=== PATIENT | male | born 1980 | race Two or more races ===

== ENCOUNTER 2020-04-10 09:55 | Outpatient (REF) | payer OTHER, SELFPAY | END 2020-04-10 09:56 | disposition home or self-care (01) | LOC: HO.LAB 09:55 | PROVIDERS: Visit Provider Internal Medicine | DX: Z20.822 Contact with and (suspected) exposure to COVID-19 (principal) | CPT/HCPCS: 36415; C9803; U0003 ==

== ENCOUNTER 2021-07-05 13:38 | Outpatient (REF) | payer OTHER, SELFPAY ==
--- NOTE | ~2021-07-05 | MR_ITS ---
EXAMINATION: MR LUMBAR SPINE WITHOUT CONTRAST CLINICAL INFORMATION: Low back pain. COMPARISON: CT abdomen 12/29/2018. TECHNIQUE: MRI of the lumbar spine was obtained using routine sequences without contrast. 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 Alignment is normal. Vertebral heights are preserved. No acute bone marrow signal changes. There is loss of intervertebral disc height and T2 signal intensity at L2-L3 related to disc degeneration. The tip of the conus and layers is located at L1-L2. No mass effect on the conus. Visualized distal cord signal intensity is normal. At L1-L2 the annular contour is normal. No canal or neuroforaminal compromise. At L2-L3 there is a bulging disc. Bilateral facet degenerative change. Moderate canal stenosis. No mass effect on the traversing or foraminal nerve roots. At L3-L4 the annular contour is normal. No canal or neuroforaminal compromise. At L4-L5 the annular contour is normal. Bilateral facet degenerative change. No canal or neuroforaminal compromise. At L5-S1 the annular contour is normal. Bilateral facet degenerative change. No canal or neuroforaminal compromise. Limited visualization of the retroperitoneal anatomy reveals no abnormal finding. Psoas and paraspinal muscle groups are symmetric. MR/MR lumbar spine wo con IMPRESSION: There is a bulging disc at L2-L3 which is superimposed upon overall congenital canal narrowing resulting in moderate canal stenosis. Otherwise no canal compromise within the lumbar spine. No mass effect on the traversing or foraminal nerve roots.
== END 2021-07-05 13:39 | disposition home or self-care (01) ==
LOC: HO.MRI 13:38
PROVIDERS: Visit Provider Nurse Practitioner Family
DX: M54.50 Low back pain, unspecified (principal)
CPT/HCPCS: 72148

== ENCOUNTER 2021-10-03 01:35 | Emergency (ER) | payer OTHER, SELFPAY | END 2021-10-03 02:47 | disposition left against medical advice (07) | PROVIDERS: Emergency Provider Emergency Medicine | DX: M54.9 Dorsalgia, unspecified (principal) ==

== ENCOUNTER 2022-01-19 15:01 | Emergency (ER) | payer OTHER, SELFPAY ==
--- NOTE | ~2022-01-19 | US_ITS ---
EXAMINATION: US ABDOMEN LIMITED CLINICAL INFORMATION: Right upper quadrant, epigastric pain. COMPARISON: None TECHNIQUE: Real-time imaging of the right upper quadrant abdominal viscera. FINDINGS: PANCREAS: Visualized portions of the pancreas are unremarkable. The pancreatic tail is obscured by bowel gas. LIVER: The liver is normal in size. The liver contour is normal. There is diffuse increased liver parenchymal echogenicity, consistent with hepatic steatosis. No focal hepatic lesion. There is no intrahepatic biliary duct dilatation seen. GALLBLADDER: Normal. The gallbladder is physiologically distended without evidence of stones, sludge, polyps, wall thickening or pericholecystic fluid. COMMON BILE DUCT: Normal in caliber measuring 0.4 cm in diameter. RIGHT KIDNEY: Normal. No hydronephrosis. No renal calculi or focal parenchymal lesions. The kidney measures 10.6 cm in maximum dimension. FREE FLUID: None. US/US abdomen limited IMPRESSION: Hepatic steatosis.
--- NOTE | ~2022-01-19 | XR_ITS ---
EXAMINATION: CHEST AND RIGHT SHOULDER. CLINICAL INFORMATION: Chest pain with limited range of motion for about 4 days. COMPARISON: None TECHNIQUE: Chest 2 views. Right shoulder 4 views. FINDINGS: CHEST: Both lungs are fairly well-expanded and clear acute process. The heart size and pulmonary vascularity is normal. No gross bony abnormality seen. RIGHT SHOULDER: The glenohumeral and AC joint space is maintained normal. No visible acute fracture, dislocation or subluxation seen. No soft tissue calcification seen. XR/XR chest 2V IMPRESSION: Unremarkable chest exam. Unremarkable right shoulder exam.
--- NOTE | ~2022-01-19 | XR_ITS ---
EXAMINATION: CHEST AND RIGHT SHOULDER. CLINICAL INFORMATION: Chest pain with limited range of motion for about 4 days. COMPARISON: None TECHNIQUE: Chest 2 views. Right shoulder 4 views. FINDINGS: CHEST: Both lungs are fairly well-expanded and clear acute process. The heart size and pulmonary vascularity is normal. No gross bony abnormality seen. RIGHT SHOULDER: The glenohumeral and AC joint space is maintained normal. No visible acute fracture, dislocation or subluxation seen. No soft tissue calcification seen. XR/XR shoulder RT min 2V IMPRESSION: Unremarkable chest exam. Unremarkable right shoulder exam.
[2022-01-19 15:14] VITALS: BP 143/84; PULSE 84; RESP 18; TEMP 37; O2SAT 97; BMI 29.5
--- NOTE | 2022-01-19 15:17 | ECG_ITS ---
Test Reason : R SHOULDER PX W/ RADIATION Blood Pressure : / mmHG Vent. Rate : 076 BPM Atrial Rate : 076 BPM P-R Int : 162 ms QRS Dur : 082 ms QT Int : 364 ms P-R-T Axes : 040 012 011 degrees QTc Int : 409 ms Normal sinus rhythm Normal ECG When compared with ECG of 05-MAY-2019 21:03, No significant change was found Referred By: Generic ED Physician Electronically Signed By:ALYSON TELLEZ MD
[2022-01-19 15:34] LABS: MANUAL DIFF FLAG NO
[2022-01-19 15:35] LABS: Basophils Percent Auto 0.5 % (0-2); Eosinophils Absolute Auto 0.1 X10*3/uL (0.0-0.4); Eosinophils Percent Auto 1.7 % (0-4); Hemoglobin 14.3 g/dl (14.0-18.0); Imm Gran Abs Auto 0.01 X10*3/uL (0.00-0.03); Imm Gran Pct Auto 0.2 % (0.0-0.4); Lymphocytes Absolute Auto 1.6 X10*3/uL (1.2-4.9); Lymphocytes Percent Auto 24.1 % (20-40); Mean Corpuscular Hemoglobin 29.2 pg (27.0-33.0); Mean Corpuscular Volume 85.9 fL (80.0-98.0); Mean Platelet Volume 9.6 fL (9.4-12.4); Monocytes Absolute Auto 0.5 X10*3/uL (0.1-1.2); Monocytes Percent Auto 7.6 % (2-11); Neutrophils Absolute Auto 4.3 x10*3/uL (2.0-8.3); Neutrophils Percent Auto 65.9 % (45-73); Platelet Count 201 X10*3/uL (160-400); Red Blood Count 4.89 X10*6/uL (4.60-5.80); Red Cell Distribution Width 13.3 % (11.0-16.0); White Blood Count 6.5 X10*3/uL (4.8-10.8)
[2022-01-19 15:53] LABS: Alanine Aminotransferase 41 U/L (0-40); Albumin Level 4.8 g/dL (3.5-5.0); Alkaline Phosphatase 78 U/L (39-117); Anion Gap 15 (12-20); Aspartate Amino Transferase 27 U/L (5-37); Bilirubin Total 0.6 mg/dL (0.0-1.0); Blood Urea Nitrogen 11 mg/dL (9-16); Calcium 9.6 mg/dL (8.4-10.2); Carbon Dioxide 26 mmol/L (22-29); Chloride 103 mmol/L (96-108); Creatinine Clr Calc Pharmacy 125.5; Estimated Glomerular Filt Rate > 60; Glucose Random 115 mg/dL (60-115); Potassium 4.1 mmol/L (3.3-5.1); Sodium 140 mmol/L (135-145); Total Protein 7.3 g/dL (6.5-8.0)
[2022-01-19 15:59] LABS: Troponin-I High Sensitivity < 3.5 ng/L (<3.5-35.0)
--- NOTE | 2022-01-19 16:05 | ED_ITS ---
HPI - Extremity Problem General Chief complaint: Extremity Problem Stated complaint: r side pain under shoulder blade Time Seen by Provider: 01/19/22 15:34 Source: patient Mode of arrival: ambulatory History of Present Illness HPI Narrative: 41-year-old male with no significant past medical history presenting to ED complaining of right-sided scapular pain radiating around abdomen to epigastrium x4 days worsening over the past 2 days. States pain is constant, fluctuates in intensity, worse with movement. Denies nausea, vomiting, diarrhea, dysuria/hematuria, flank pain, recent travel, history of clots, pedal edema Onset (ago): day(s) Related Data Previous Rx's Medication Instructions Recorded ketorolac 10 mg tablet 10 mg PO TID PRN pain 5 days #15 01/19/22 tabs lidocaine 5 % topical patch 1 patch topical DAILY PRN pain #30 01/19/22 (Lidoderm) ea Allergies Allergy/AdvReac Type Severity Reaction Status Date / Time cefazolin [CEFAZOLIN] Allergy Unknown ANAPHYLAXIS Unverified 12/23/19 18:52 Review of Systems Review of Systems: Constitutional: No Fever, No Chills, No Fatigue, No Malaise ENT/Mouth: No Ear Pain, No Nasal Congestion, No Sinus Pain, No sore throat, No Rhinorrhea, No Swallowing Difficulty Eyes: No Eye Pain, No Swelling, No Redness, No Discharge, No Vision Changes Cardiovascular: + Chest Pain, No SOB, No Dyspnea on Exertion, No Orthopnea, No Edema, No Palpitations Respiratory: No Cough, No Sputum, No Dyspnea Gastrointestinal: No Nausea, No Vomiting, No Diarrhea, No Constipation, No Abdominal pain Genitourinary: No Dysuria, No Urinary Frequency, No Hematuria, No Urinary Incontinence/retention, No Flank Pain, No Urinary Flow Changes Musculoskeletal: No joint pain, No Myalgias, No Joint Swelling Skin: No Skin Lesions, No rash Neuro: No Weakness, No Numbness, No Paresthesias, No Dizziness, No Headache Yes all other systems are reviewed and are negative Constitutional: Constitutional: Reports as per [facility] Past Medical History Attestation statement: The following information was validated with the patient. Social History Social History Advance Directives: No Advance Directives Information Provided: No Physical Exam Vital Signs: Vital Signs: Last Vital Signs Temp 98.0 F 01/19/22 16:58 Pulse 70 01/19/22 16:58 Resp 18 01/19/22 16:58 BP 115/82 01/19/22 16:58 Pulse Ox 5 L 01/19/22 16:58 O2 Del Method 01/19/22 16:58 BMI result Body Mass Index 29.5 Const: General: cooperative, healthy appearing and no acute distress Orientation/consciousness: patient oriented x3 Limitations: no limitations HEENT: Head: Yes normal to inspection and Yes atraumatic Ears: hearing feli sly normal bilaterally General nose exam: Normal external nose present Face and sinus: Yes normal facial exam Eyes: General: appearance normal, both eyes and all related structures EOM: EOMs intact bilaterally Neck: Neck: Yes normal visual inspection and Yes no meningeal signs Chest: Chest palpation & inspection: normal inspection of the chest, no crepitus and no tenderness Resp: Effort & Inspection: normal respiratory effort and no respiratory distress Auscultation: clear to auscultation bilaterally, no crackles, no rales, no rhonchi and no wheezes Cardio: Rate: regular rate Heart sounds: S1 normal heart sound present and S2 normal heart sound present GI: Inspection: Yes normal to inspection Palpation (GI): Soft to palpation, Tenderness to palpation present (GI) in the epigastrum and in the RUQ; with no rebound tenderness, no guarding and not rigid : General: Yes no CVA tenderness Back/Spine/Pelvis: Other: No midline thoracic/lumbar spinous tenderness/step-off or deformity Back: no CVA tenderness Skin: Rashes: no rashes Wounds: no wounds Neuro: General: patient oriented x3, tone normal and no meningeal signs Gait exam (Neuro): Normal gait present Extrem: General: Yes normal to inspection, Yes no pedal edema and Yes no calf tenderness Course Course Course Narrative: -161--labs unremarkable. Troponin negative. -1699--D-dimer negative XR chest 2V/XR shoulder RT min 2V IMPRESSION: Unremarkable chest exam. ? Unremarkable right shoulder exam.? 1714-- US abdomen limited IMPRESSION: ? Hepatic steatosis. -1717--on re-evaluation patient reports symptomatic improvement after IV Toradol given in the ED. Results discussed with patient including worrisome signs and symptoms and strict return precautions, and when to return to the emergency department. They verbalized understanding and feel safe for discharge at this time. MDM - Extremity (Nontraumatic) MDM Narrative Medical decision making narrative: 41-year-old male with no significant past medical history presenting to ED complaining of right-sided scapular pain radiating around abdomen to epigastrium x4 days worsening over the past 2 days. On exam vital signs stable, NAD, nontoxic appearing, abdomen soft with RUQ/epigastric pain, no rebound or guarding, no CVA tenderness. No pedal edema. Concern for cholecystitis/cholelithiasis vs pancreatitis vs pyelo or renal stone vs atypical ACS vs ?PE vs PNA vs MSK pain. Lower suspicion for dissection or UTI Plan: EKG, labs, CXR, abdomen ultrasound, IVF, pain management Differential Diagnosis Differential diagnosis: Likely lower extremity edema Medical Records Attestation: I reviewed the patient's medical records. Lab Data Attestation: I reviewed the patient's lab results. Result diagrams: 01/19/22 15:27 01/19/22 15:27 Labs: Lab Results 01/19/22 01/19/22 01/19/22 Range/Units 15:27 15:27 15:27 WBC 6.5 (4.8-10.8) X10*3/uL RBC 4.89 (4.60-5.80) X10*6/uL Hgb 14.3 (14.0-18.0) g/dl Hct 42.0 (42.0-52.0) % MCV 85.9 (80.0-98.0) fL MCH 29.2 (27.0-33.0) pg MCHC 34.0 (31.0-36.0) g/dl RDW 13.3 (11.0-16.0) % Plt Count 201 (160-400) X10*3/uL MPV 9.6 (9.4-12.4) fL Immature Gran % (Auto) 0.2 (0.0-0.4) % Neut % (Auto) 65.9 (45-73) % Lymph % (Auto) 24.1 (20-40) % Stearns % (Auto) 7.6 (2-11) % Eos % (Auto) 1.7 (0-4) % Baso % (Auto) 0.5 (0-2) % Lymph # (Auto) 1.6 (1.2-4.9) X10*3/uL Stearns # (Auto) 0.5 (0.1-1.2) X10*3/uL Eos # (Auto) 0.1 (0.0-0.4) X10*3/uL Baso # (Auto) 0.0 (0.0-0.2) X10*3/uL Abs Immat Gran (auto) 0.01 (0.00-0.03) X10*3/uL Absolute Neuts (auto) 4.3 (2.0-8.3) x10*3/uL Absolute Nucleated RBC 0.000 (0.0-0.012) X10*3/uL Nucleated RBC % (auto) 0.0 (0.0-0.2) /100WBC D-Dimer High Sensitivty NG/ML Sodium 140 (135-145) mmol/L Potassium 4.1 (3.3-5.1) mmol/L Chloride 103 (96-108) mmol/L Carbon Dioxide 26 (22-29) mmol/L Anion Gap 15 (12-20) BUN 11 (9-16) mg/dL Creatinine 0.96 (0.5-1.4) mg/dL Estim Creat Clear Calc 125.5 Estimated GFR > 60 Random Glucose 115 (60-115) mg/dL Calcium 9.6 (8.4-10.2) mg/dL Magnesium 2.0 (1.6-2.6) mg/dL Total Bilirubin 0.6 (0.0-1.0) mg/dL AST 27 (5-37) U/L ALT 41 H (0-40) U/L Alkaline Phosphatase 78 (39-117) U/L Troponin I High Sens < 3.5 (<3.5-35.0) ng/L Total Protein 7.3 (6.5-8.0) g/dL Albumin 4.8 (3.5-5.0) g/dL Lipase 10 (8-78) U/L 01/19/22 Range/Units 16:29 WBC (4.8-10.8) X10*3/uL RBC (4.60-5.80) X10*6/uL Hgb (14.0-18.0) g/dl Hct (42.0-52.0) % MCV (80.0-98.0) fL MCH (27.0-33.0) pg MCHC (31.0-36.0) g/dl RDW (11.0-16.0) % Plt Count (160-400) X10*3/uL MPV (9.4-12.4) fL Immature Gran % (Auto) (0.0-0.4) % Neut % (Auto) (45-73) % Lymph % (Auto) (20-40) % Stearns % (Auto) (2-11) % Eos % (Auto) (0-4) % Baso % (Auto) (0-2) % Lymph # (Auto) (1.2-4.9) X10*3/uL Stearns # (Auto) (0.1-1.2) X10*3/uL Eos # (Auto) (0.0-0.4) X10*3/uL Baso # (Auto) (0.0-0.2) X10*3/uL Abs Immat Gran (auto) (0.00-0.03) X10*3/uL Absolute Neuts (auto) (2.0-8.3) x10*3/uL Absolute Nucleated RBC (0.0-0.012) X10*3/uL Nucleated RBC % (auto) (0.0-0.2) /100WBC D-Dimer High Sensitivty < 150 NG/ML Sodium (135-145) mmol/L Potassium (3.3-5.1) mmol/L Chloride (96-108) mmol/L Carbon Dioxide (22-29) mmol/L Anion Gap (12-20) BUN (9-16) mg/dL Creatinine (0.5-1.4) mg/dL Estim Creat Clear Calc Estimated GFR Random Glucose (60-115) mg/dL Calcium (8.4-10.2) mg/dL Magnesium (1.6-2.6) mg/dL Total Bilirubin (0.0-1.0) mg/dL AST (5-37) U/L ALT (0-40) U/L Alkaline Phosphatase (39-117) U/L Troponin I High Sens (<3.5-35.0) ng/L Total Protein (6.5-8.0) g/dL Albumin (3.5-5.0) g/dL Lipase (8-78) U/L Discharge Plan Discharge Clinical Impression: Abdominal pain Patient Disposition: Home, Self-Care Instructions: Abdominal Pain (ED) Additional Instructions: Your blood work was reassuring. Your chest x-ray and shoulder x-ray were unremarkable. Your ultrasound shows fatty liver, avoid fatty/greasy foods, salts, alcohol. Toradol as an anti-inflammatory/pain medication, take with food. Lidoderm patches or numbing patches, apply to painful area Continue taking previously prescribed muscle relaxer. Please close follow-up with her doctor. If symptoms persist or worsen, pain becomes unbearable, fever/nausea vomiting return to the emergency department Prescriptions: New ketorolac 10 mg tablet 10 mg PO TID PRN (Reason: pain) 5 Days Qty: 15 0RF lidocaine [Lidoderm] 5 % adhesive patch,medicated 1 patch topical DAILY MDD remove after 12 hours PRN (Reason: pain) Qty: 30 0RF Rx Instructions: leave on most painful area for up to 12 hrs Referrals: [facility] [Provider Group] - 1 week Jose Moseley NP [Primary Care Provider] -
[2022-01-19 16:26] LABS: Lipase 10 U/L (8-78)
[2022-01-19] MEDS: Famotidine/PF 20 MG/2 ML VIAL IVPUSH (16:35)
[2022-01-19] MEDS: Ketorolac Tromethamine 15 MG/ML VIAL IVPUSH (16:35)
[2022-01-19] MEDS: 0.9 % Sodium Chloride 1,000 ML 999 ML IV (16:35)
[2022-01-19 16:48] LABS: D Dimer High Sensitivity < 150 NG/ML
[2022-01-19 16:58] VITALS: BP 115/82; PULSE 70; RESP 18; TEMP 36.7; O2SAT 5
== END 2022-01-19 17:51 | disposition home or self-care (01) ==
PROVIDERS: Physician Assistant; Emergency Provider Emergency Medicine; PCP Nurse Practitioner Family
DX: R10.10 Upper abdominal pain, unspecified (principal); M25.511 Pain in right shoulder; K76.0 Fatty (change of) liver, not elsewhere classified
CPT/HCPCS: 36415; 71046; 73030; 76705; 80053; 83690; 83735; 84484; 85025; 85379; 93005; 96374; 96375; 99284; J1885